=== PATIENT | female | born 1955 | race Caucasian/White ===

== ENCOUNTER 2024-08-30 19:28 | Emergency (ER) | payer OTHER, SELFPAY ==
[2024-08-30 19:49] VITALS: BP 174/85; PULSE 70; RESP 18; TEMP 36.6; O2SAT 95; BMI 34.0
--- NOTE | 2024-08-30 21:23 | ED.GENADULT ---
HPI - General Adult General Date Seen: 08/30/24 Chief complaint: Ear/Nose/Throat Problem Stated complaint: Left Ear Infection concerns Time Seen by Provider: 08/30/24 21:22 History of Present Illness HPI narrative: 69 yo female with a past medical history including Factor 5 Leiden, history of blood clots, paroxysmal AFib, hypertension, and history of frequent he sinus infections who presents to the ER today for sharp intermittent left ear pain. She does have a bit of a chronic cough and sinus problems it has been worse over the past several days. Since today she has also developed left ear pain. It has been quite sharp in nature and comes and goes. No clear trigger for it. No right ear pain. No sore throat. No fever. No headache. She is not diabetic or immunosuppressed. She recalls that she previously had a hole in 1 of her eardrums, but she cannot recall which 1. [facility] Medical History (Updated 08/30/24 @ 21:41 by Hubert Valle MD) Osteopenia ?M85.80 - Other specified disorders of bone density and structure, unspecified site (ICD-10) Essential hypertension ?I10 - Essential (primary) hypertension (ICD-10) Deep venous thrombosis ?I82.409 - Acute embolism and thrombosis of unspecified deep veins of unspecified lower extremity (ICD-10) 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 - Other dorsalgia (ICD-10) Osteoarthritis ?M19.90 - Unspecified osteoarthritis, unspecified site (ICD-10) Prediabetes ?R73.03 - Prediabetes (ICD-10) Factor V Leiden mutation ?D68.51 - Activated protein C resistance (ICD-10) Surgical History (Updated 08/30/24 @ 20:32 by Marquis Perkins RN) History of abdominal hysterectomy ?Z90.710 - Acquired absence of both cervix and uterus (ICD-10) History of tonsillectomy ?Z90.89 - Acquired absence of other organs (ICD-10) History of carpal tunnel release ?Z98.890 - Other specified postprocedural states (ICD-10) Social History Smoking Status: Never smoker Second hand tobacco smoke exposure: No How often do you have a drink containing alcohol: never AUDIT-C Alcohol total score: 0 Non-prescribed substance use: denies use Exam Narrative: Exam Narrative: Constitutional: Appears well-developed and well-nourished. Alert. Conversant. Non toxic. HENT: Head: Atraumatic. Nose: Nose normal. Mouth/Throat: Oral mucosa is clear and moist. no trismus. Pharynx normal. Tonsils surgically absent. No tonsillar enlargement, erythema, or exudate. Right ear: Mastoid, pinna, canal, TM are normal. Left ear: Mastoid, pinna, canal normal save for a small amount of cerumen. Visualized TM is erythematous with some opaque fluid behind it. Eyes: Conjunctivae normal. EOM normal. Pupils equal, round, and reactive to light. No scleral icterus. Neck: Normal range of motion. Neck supple. No tracheal deviation present. Cardiovascular: Normal rate, regular rhythm. No gallop. No friction rub. No murmur heard. Pulmonary/Chest: Effort normal. No stridor. No respiratory distress. No wheezes. No rales. No rhonchi . No tenderness. Musculoskeletal: RUE: Normal range of motion. No tenderness. No deformity LUE: Normal range of motion. No tenderness. No deformity RLE: Normal range of motion. No edema. No tenderness. No deformity LLE: Normal range of motion. No edema. No tenderness. No deformity Lymph: No cervical adenopathy. Neurological: Alert and oriented to person, place, and time. Normal strength. CN II-VII intact. No sensory deficit. GCS eye subscore is 4. GCS verbal subscore is 5. GCS motor subscore is 6. Normal coordination Skin: Skin is warm and dry. No rash noted. No pallor. Normal capillary refill. Psychiatric: Normal mood. Normal affect. Const: Vital Signs, click to edit/add: Vital Signs - 24 hr 08/30/24 19:49 08/30/24 21:53 08/30/24 21:54 Temperature 97.9 F 97.9 F 97.9 F Pulse Rate [Right Radial] 70 68 68 Respiratory Rate 18 18 18 Blood Pressure [Ri ght Upper Arm] 174/85 H 155/85 H 155/85 H Pulse Oximetry 95 95 Oxygen Delivery Me thod Room Air Room Air Course Vital Signs Vital signs: Initial Vital Signs Temperature 97.9 F 08/30/24 19:49 Temperature Source Oral 08/30/24 19:49 Pulse Rate 70 08/30/24 19:49 Pulse Rhythm Regular 08/30/24 19:49 Pulse Strength 3+ Normal 08/30/24 19:49 Respiratory Rate 18 08/30/24 19:49 Blood Pressure 174/85 H 08/30/24 19:49 Blood Pressure Mean 114 H 08/30/24 19:49 Blood Pressure Position Supine 08/30/24 19:49 Pulse Oximetry 95 08/30/24 19:49 Oxygen Delivery Method Room Air 08/30/24 19:49 Vital Signs Temperature 97.9 F 08/30/24 19:49 Pulse Rate 70 08/30/24 19:49 Respiratory Rate 18 08/30/24 19:49 Blood Pressure 174/85 H 08/30/24 19:49 Pulse Oximetry 95 08/30/24 19:49 Oxygen Delivery Method Room Air 08/30/24 19:49 Temperature 97.9 F 08/30/24 21:54 Pulse Rate 68 08/30/24 21:54 Respiratory Rate 18 08/30/24 21:54 Blood Pressure 155/85 H 08/30/24 21:54 Pulse Oximetry 95 08/30/24 21:53 Oxygen Delivery Method Room Air 08/30/24 21:53 Medical Decision Making MDM Narrative Medical decision making narrative: This patient presents for evaluation of left ear pain that began today, in the setting of some recent cough and nasal congestion.. The patient has an exam consistent with acute otitis media on the left. There is no sign of mastoiditis, meningitis, perforation, mass, dental abscess, or peritonsillar abscess. There is no evidence of otitis externa. No foreign body. The patient will be started on antibiotics and may take Tylenol or Ibuprofen for pain. Return if increasing pain, fever, decrease in hearing, swelling or pain of the mastoid, ear discharge, or severe headache. Follow-up with primary physician in 7-10 days, if symptoms persist. Instymeds prescriptions for amoxicillin 500 t.i.d. for 10 days, Adrian p.r.n.-10 tablets, Zofran p.r.n.-10 tablets. Opiate precautions reviewed. Discharge Plan Discharge Clinical Impression: Otitis media Patient Disposition: Home, Self-Care Condition: Stable Instructions: Ear Infection (ED) Additional Instructions: As we discussed, please be careful with the prescription pain killer because it can cause dizziness and drowsiness, nausea, and can be addictive. To treat your pain you can use regular [id number] medications 1st in use the opiate pain killer only if needed. Use the Zofran if needed help treat nausea. Use the antibiotic as prescribed help treat the ear infection. If you have any worsening symptoms such as high fever, severe pain, diffuse headache, vomiting, bleeding her fluid draining from her ear her, please come back to the ER right away. Please recheck with your regular doctor in 5-7 days. Stand Alone Forms: SmartHub Instructions
--- OUTSIDE RECORDS SUMMARY | 2024-08-30 21:51 | XMS_ITS | Data Portability ---
Author Organization [place] [facility], autoContract Address [address] [address] [place] [address] Care Team Providers Care Digital Media Producer Name Role Phone CYNTHIA BILL Primary Care Provider [phone] ANNA NO Microarray Analyst Assessment No assessment recorded. Plan of Treatment Reminders Order Date Submit Date Provider Last Modified By Organization Details Last Modified Time Details Appointments None recorded. Lab None recorded. Referral None recorded. Procedures home sleep testing (PROC) [id number] BLANK Not available 17:55:05 Surgeries None recorded. Imaging None recorded. Medication Orders None recorded. Patient TargetsNo targets recorded. Patient Instructions Encounter Date Encounter Id Patient Instructions Last Modified By Organization Details Last Modified Time 03/06/2024 [id number] The current plan was discussed with the patient, who understands and agrees with the plan. Questions were answered to the patient's satisfaction. Medication side effects/dosing discussed. Return to/contact the clinic if condition worsens or new symptoms arise. Advised to contact office within 2 weeks if patient is not contacted regarding ordered procedures/testin g/equipment. [email or web address] Not available 03/06/2024 18:55:26 Reason for Referral None Reported. Results Created Date Observation Date Name Description Value Unit Range Abnormal Flag Note LastModifiedBy Organization Detail LastModifiedTime 03/05/1912/16/2023 US, echoc ardio gram No observ ation record ed. [email or web address] Not Available 2024 18:52:30 03/05/19 25 12/14/2023 XR, chest , 2 view No observ ation record ed. [email or web address] Not Available 2024 18:52:31 03/05/19 25 12/15/2023 XR, chest , 1 view No observ ation record ed. [email or web address] Not Available 2024 18:52:31 04/05/19 25 03/17/2024 home sleep testi zuhair (PROC ) No observ ation record ed. [email or web address] Not Available 03/21 16:43:28 04/07/19 home sleep testi ng (PROC ) No observ ation record ed. [email or web address] Not Available 2024 15:09:50 Result Notes None recorded. Problems Name Problem SNOMED Code Status Onset Date Resolution Date Notes Provider Name and Address Organization Details Recorded Time Hypertensiv e disorder 61090226 Active 2024 ALYSA LAU NP [address] [facility],[address], [address], [place] [facility] 19:33:18 Gout 49403096 Active 2024 ALYSA LAU NP [address] [place] [address],[address], [address], [place] [facility] 19:33:24 Factor V Leiden mutation 000119196 Active 2024 ALYSA LAU NP [address] [facility],[address] [address], [place], [address], [place] [facility] 19:33:37 Deep venous thrombosis 885296446 Active 2024 ALYSA LAU NP [address] [facility],[address], [address], [place] [facility] 19:33:45 Paroxysmal atrial fibrillatio n 709019154 Active 2024 ALYSA LAU NP [address] [facility],[address], [address], [place] [facility] 19:33:59 Gastroesoph ageal reflux disease without esophagitis 864032601 Active 2024 ALYSA LAU NP [address], [place], [address], [place] [facility] 19:34:17 Pneumonia caused by SARS-CoV-2 1079726087562 63499 Active 2024 ALYSA PAVONCARAY, [employer]ER [address], [place], [address], [place] [facility] 15:14:33 Osteoarthri tis 088571921 Active 2024 ALYSA PAVONAPHKamila, [employer]ER [address], [place], [address], [place] [facility] 15:14:55 Obstructive sleep apnea syndrome 70882127 Active 2024 ahi = 16 ALYSA PAVONSARA, [employer] BO[employer]ER [address],[address] [address], [place], [address], [place] [facility] 09:18:27 Problem Notes None recorded. Procedures Surgical History Date Name Laterality Status Provider Name and Address Organization Details Recorded Time Tonsillectomy completed Zahra Corbett [place] [facility] 03/06/2024 17:16:48 Hysterectomy completed Zahra Corbett [place] [facility] 03/06/2024 17:16:55 Imaging Results None recorded. Procedure Notes None recorded. Medical Equipment None Reported. Allergies Allergen ID Allergen Name Allergen Category Reaction Reaction Severity Criticality Documentation Date Start Date Code Code System Note Provider Name and Address Organization Details Recorded Time 021613 codeine medicatio n nausea vomiting Not available Not available Not available 03/04/2024 2670 RxNorm ALYSA LIBRADOAPHY, [employer]ER [address], [place], [address], [facility] - [facility] 19:35:18 265410 latex environme nt,medica tion Not available Not available Not available 03/06/2024 85666 91 RxNorm ALYSA HEAPHY, [employer] BO[employer]ER [address], [place], [address], [facility] - [facility] 5 15:12:18 380800 Paxlovid medicatio n Not available Not available Not available 03/06/2024 61608 5 UNK ALYSA LAU, [employer] BO[employer]ER [address] [facility] [address], [place], [address], [facility] - [facility] 5 15:15:28 Medications Name Sig Start Date Stop Date Status Note LastModified by Organization Details LastModified Time doxycycline hyclate 100 mg capsule Take 1 capsule twice a day by oral route. active Not Available Not Available No t Available diltiazem ER 240 mg capsule,24 hr,extended release Take 1 capsule every day by oral route. active Not Available Not Available No t Available allopurinol 100 mg tablet Take 1 tablet every day by oral route. active Not Available Not Available No t Available omeprazole 10 mg capsule,delay ed release Take 2 capsules every day by oral route. active Not Available Not Available No t Available losartan 100 mg tablet Take 1 tablet every day by oral route. active Not Available Not Available No t Available colchicine active Not Available Not Av ailable Not Available nebivolol 5 mg tablet Take 1 tablet every day by oral route. active Not Available Not Available No t Available apixaban 5 mg tablet Take 1 tablet twice a day by oral route. active Not Available Not Available No t Available Vitals Date Recorded Body height Body mass index (BMI) Body weight Oxygen saturation Oxygen saturation in Arterial blood by Pulse oximetry Respiratory rate Heart rate Body temperature Systolic And Diastolic Provider Name and Address Organization Details Last Updated DateTime 5 162.56 cm 32.3 kg/m2 37679.8 g 93 % 93 % 16 /min 73 /min 97.6 [degF] 120/74 mm[Hg] Heath Raymond [place] [facility] 5 14:44:38 Social History Question Answer Notes LastModified by Organizat ion Details LastModified Time Tobacco Smoking Status Never Smoker Zahra valencia, [place] [facility] 03/06/2024 17:18:33 What Is Your Level Of Caffeine Consumption? Moderate [email or web address] Information not available 03/06/2024 In The 14 Days Before Symptom Onset, Have You Had Close Contact With A Laboratory-confir med COVID-19 While That Case Was Ill? No [email or web address] Information not available 03/06/2024 In The 14 Days Before Symptom Onset, Have You Had Close Contact With A Person Who Is Under Investigation For COVID-19 While That Person Was Ill? No [email or web address] Information not available 03/06/2024 Have You Been To An Area Known To Be High Risk For COVID-19? No [email or web address] Information not available 03/06/2024 What Was The Date Of Your Most Recent Tobacco Screening? 03/06/2024 [email or web address] Information not available 03/06/2024 How Many Children Do You Have? 2 Daughter' s [email or web address] Information not available 03/06/2024 Do You Have Any Pets? No [email or web address] Information not available 03/06/2024 What Is Your Relationship Status? [email or web address] Information not available 03/06/2024 Are You Passively Exposed To Smoke? No [email or web address] Information no t available 03/06/2024 Has Tobacco Cessation Counseling Been Provided? No [email or web address] Information not available 03/06/2024 Sex: Unknown Functional Status Question Answer Note LastModified by Organizat ion Details LastModified Time Do you use any illicit or recreational drugs? No [email or web address] Information not available 03/06/2024 Do you or have you ever used any other forms of tobacco or nicotine? No [email or web address] Information not available 03/06/2024 What is your level of alcohol consumption? None [email or web address] Information not available 03/06/2024 Are you currently employed? No [email or web address] Information not available 03/06/2024 What is your exercise level? Occasional [email or web address] Information not available 03/06/2024 Mental Status None recorded. Family History Relationship Description Onset Age of this Age Resolved Age Notes LastModified by Organization Details LastModified Time Mother Chronic obstructive pulmonary disease [email or web address] Not available 17:17:07 Mother Carcinoma in situ of lung [email or web address] Not available 03/06/2024 17:17:34 Mother Rheumatoid arthritis [email or web address] Not available 17:17:58 Mother Dementia [email or web address] Not avail able 03/06/2024 17:18:08 Mother Alzheimer's disease Not available 17:18:15 Father Sleep apnea [email or web address] Not av ailable 03/06/2024 17:17:19 Father Essential hypertension [email or web address] Not available 03/06/2024 17:17:49 Medical History Condition Response Coronary Artery Disease N Atrial Fibrillation Y High Blood Pressure (Hypertension) Y Kidney Stones N Emphysema N COPD N Depression Y Pneumonia Y Lung Nodule N Valley Fever (Coccidioidomycosis) N Congestive Heart Failure N Sinusitis N Blood Clot Y Acid Reflux (GERD) Y Cancer N Restless Leg Syndrome (RLS) N Stroke N Murmur/Heart Valve Disease N Rheumatoid Arthritis N Fibromyalgia Y Kidney Disease N Anxiety Y Pulmonary Fibrosis N Tuberculosis N AIDS/HIV N Asthma N Hepatitis N Pulmonary Embolism N Thyroid Disease N Asbestosis N Sarcoidosis N Cystic Fibrosis N Chest Pain/Angina N High Cholesterol Y Allergies/Hayfever Y Osteoarthritis Y Anemia N Multiple Sclerosis N Heart Attack (NM) N Diabetes N Insomnia N Dementia N Immunoglobulin Deficiency N Lupus N Bipolar Disorder N Sleep Apnea N Heart Disease N Bronchitis Y Osteoporosis N Gynecological HistoryNo gynecological history recorded. Obstetrics History GPAL:G 0 P 0 0 0 0 Past Encounters Encounter ID Performer Location Encounter Start Date Encounter Closed Date Diagnosis/Indication Diagnosis SNOMED-CT Code Diagnosis ICD10 Code Diagnosis Note [id number] ALYSA HEAPHKamila, [employer] BO[employer]ER [facility] [address] [facility] ,[address] [address] 03/06/2024 14:13:03 03/06/2024 17:45:36 Hypersomnia 31505997 G47.10 Polysomnog jayden is being ordered due to the presence of snoring, witnessed apneas during sleep, and/or daytime hypersomno lence. An overnight polysomnog hui is indicated to evaluate for sleep disordered breathing. Discussed options for DANIELA treatment including positive airway pressure ventilatio n, dental device, weight loss & Inspire. Discussed the risks of not treating sleep apnea in regards to the associatio n or developmen t of other diseases including hypertensi on, CAD, atrial fibrillati on, diabetes, stroke, and others. I will call pt with results and make follow up accordingl y Health Concerns Section Related Observation LastModified by Organization Detai ls LastModified Time None Recorded Concern Status LastModified by Organization Details LastModified Time None Recorded Advance Directives Directive None Recorded Payers Insurance Date Sequence Insurance Name Policy Number Policy Wallace Covered Member ID Wallace Member ID Guarantor Name 03/05/2024 1 [employer] (MEDICARE REPLACEMENT/A DVANTAGE - HMO) Casandra Hines [id number] Casandra Hines 03/05/2024 1 [employer] (MEDICARE REPLACEMENT/A DVANTAGE - PPO) [id number] Casandra Hines [id number] Casandra Hines Notes Date Note Type Note Provider Name and Address Organization Details Recorded Time 03/06/2024 text/html New patient is here today for sleep evaluation. She had new onset afib which converted w/ meds. Hx Factor V Leiden. Hx recurrent DVT. On eliquis. Snores. Falls asleep ok. Fragmented sleep. Unrefreshing sleep.Usually takes a daytime nap lasting a couple hrs. Still gets to sleep @ night. Dozes if inactive.Father w/ DANIELA. Bedtime: 0-11pWaketime: [address]a [place] in [place] & lives in [place] ALYSA LAU, FIRER BOILER [address],[address] [address], [place], [address], [facility] - [facility] 03/06/2024 18:55:49 OBGyn Episode No OBEpisode recorded.
--- OUTSIDE RECORDS SUMMARY | 2024-08-30 21:51 | XMS_ITS | Continuity of Care Document ---
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 Plan of Treatment Reminders Order Date Submit Date Provider Last Modified By Organization Details Last Modified Time Details Appointments ESTABLISH ED 15 2024 09:45A M Radha Le MD Not available Not available Not available Lab urinalysi s, dipstick 2024 025 [facility], [address], [address], [place], [address], 07/24/2024 11:11:24 Referral patient navigator referral [address] [facility], [address], [address], [place], [address], 08/03/2024 14:39:11 Procedures None recorded. Surgeries None recorded. Imaging None recorded. Medication Orders Vesicare 5 mg tablet 2024 025 [id number], [address] [place], [id number], 08/14/2024 15:31:20 Patient TargetsNo targets recorded. Patient Instructions Encounter Date Encounter Id Patient Instructions Last Modified By Organization Details Last Modified Time 07/24/2024 [id number] OAB/UUI/VIVI -st art vesicare 5mg and see in 6 week --risks and benefits discussed -start kegels 10/10 reps 2-3 times per day -We have reviewed the overactive bladder care pathway and an annotated handout was provided and reviewed with the patient today. -We have discussed that the first line of therapy is to decrease bladder irritants and to decrease fluids prior to bedtime. limiting amounts of coffee, soda, citrus can help along with dietary changes. -We discussed options for Physical Therapy and biofeedback as well as use of medications. There are many medications that are approved for OAB a handout was given that delineates this and reviews all medications (anticholingerics-- risk for dry mouth/constipation most commonly, or a newer medications, Myrbetriq or Gemtesa). I have suggested looking into insurance coverage for medication, as some medications are not initially covered well under some plans. -We did review 3rd line options for their bladder (Posterior Tibial Nerve stimulation (PTNM), Sacral Neuromodulation (Interstim/Axonics) , BOTOX) and others. We discussed that at times an evaluation with urodynamics, a test to study the bladders function, may be required if the above fails as well as cystocopy. [email or web address] Not available 07/24/2024 11:04:08 Reason for Referral Referring Physician: Radha espitia, Urology, Encounter Date: 07/24/2024 Problems Name Problem SNOMED Code Status Onset Date Resolution Date Notes Provider Name and Address Organization Details Recorded Time Urge incontinence of urine 39690167 Active 2024 Jackeline valencia [facility] 5 15:41:09 Essential hypertension 69631596 Active 2024 Jackeline valencia [facility] 5 15:50:52 Atrial fibrillation 31678375 Active 2024 Jackeline valencia [facility] 5 15:51:11 History of deep vein thrombosis 648931949 Active 2024 RICHIE Regan [facility] 5 15:51:20 Sleep apnea 73746977 Active 2024 Jackeline valencia [facility] 15:51:35 Lipoma 29763952 Active 2024 Jackeline Reilly [facility] 15:51:48 Problem Notes None recorded. Procedures Surgical History Date Name Laterality Status Provider Name and Address Organization Details Recorded Time 07/25/19 25 Past Data Reviewed completed Radha Le MD [address] [facility],[address], [place], [address] [place] [address] 07/23/2024 15:51:51 07/25/19 25 In and Out Catheterization- female completed Radha Le MD [address] [facility] [address], [place], [address] 07/24/2024 11:03:09 02/18/19 24 Colonoscopy completed Jackeline Reilly [facility] 07/21/2024 15:49:04 Total [facility] 07/21/[facility] 15:48:48 Diagnostic colonoscopy completed Not Available Health Note 07/23/2024 10:31:12 Total hysterectomy completed Not Available Health Note 07/23/2024 10:31:12 Imaging Results None recorded. Procedure Notes None recorded. Medical Equipment None Reported. Allergies Allergen ID Allergen Name Allergen Category Reaction Reaction Severity Criticality Documentation Date Start Date Code Code System Note Provider Name and Address Organization Details Recorded Time 929213 POLLEN EXTRACTS environme nt,medica tion cough Not available Not available 07/21/2024 30531 6 [facility] 15:44[facility]36 144815 tree and shrub pollen environme nt,medica tion cough Not available Not available 07/21/2024 98335 JENNIE Reilly [facility] 15:44:50 196753 grass pollen environme nt,medica tion cough Not available Not available 07/21/2024 14124 JENNIE Reilly [facility] 15:45:01 293563 mold extract environme nt cough Not available Not available 07/23/2024 19926 8 RxNorm Not Available Health Note 10:31:11 268845 hydrochlo rothiazid e medicatio n Not available Not available Not available 07/24/20242023 5487 RxNorm unrec ogniz ed react ion (text : Gout, Exace rbati on, code: [id number]) (from [facility]) Lorene Acosta [facility] 5 10:45:28 716628 allopurin ol medicatio n Not available Not available Not available 07/24/2024 519 RxNorm Lorene Acosta [facility] 5 10:45:41 830216 solifenac in medicatio n dizziness Not available Not available 08/14/2024 58942 7 RxNorm Const ipati on Jackeline Reilly [facility] 5 15:30:55 Medications Name Sig Start Date Stop Date Status Note LastModified by Organization Details LastModified Time diltiazem CD 240 mg capsule,ext ended release 24 hr TAKE 1 CAPSULE BY MOUTH DAILY active Not Available Not Available No t Available prednisone 20 mg tablet TAKE 1 TABLET BY MOUTH TWICE DAILY 07/24 completed Not Available Not Available Not Available naproxen 250 mg tablet TAKE 1 TABLET BY MOUTH EVERY 12 HOURS NEEDED active Not Available Not Available No t Available allopurinol 100 mg tablet TAKE 1 TABLET BY MOUTH DAILY FOR 2 WEEKS. THEN INCREASE TO 2 TABLETS DAILY FOR 2 WEEKS. THEN INCREASE TO 3 TABLETS active Not Available Not Available No t Available losartan 100 mg-hydrochl orothiazide 25 mg tablet TAKE 1 TABLET BY MOUTH EVERY DAY active Not Available Not Available No t Available benzonatate 100 mg capsule TAKE 1 CAPSULE BY MOUTH THREE TIMES DAILY NEEDED FOR COUGH active Not Available Not Available No t Available omeprazole 20 mg capsule,del ayed release Take 1 capsule every day by oral route. active Not Available Not Available No t Available albuterol sulfate HFA 90 mcg/actuati on aerosol inhaler INHALE 2 PUFFS INTO THE LUNGS EVERY 4 TO 6 HOURS NEEDED active Not Available Not Available No t Available losartan 100 mg tablet Take 1 tablet every day by oral route. active Not Available Not Available No t Available amoxicillin 875 mg-potassiu m clavulanate 125 mg tablet TAKE 1 TABLET BY MOUTH TWICE DAILY WITH MEALS FOR 10 DAYS 07/23 completed Not Available Not Available Not Available solifenacin 5 mg tablet TAKE 1 TABLET BY MOUTH EVERY DAY 08/14 completed Not Available Not Available Not Available nebivolol 5 mg tablet Take 1 tablet every day by oral route. active Not Available Not Available No t Available cetirizine 10 mg capsule Take by oral route. active Not Available Not Available No t Available Eliquis 5 mg tablet Take 1 tablet twice a day by oral route. active Not Available Not Available No t Available Gemtesa 75 mg tablet TAKE 1 TABLET BY MOUTH EVERY DAY active Not Available Not Available No t Available Paxlovid 300 mg (150 mg x 2)-100 mg tablets in a dose pack TAKE 2 NIRMATREL VIR TABLETS AND 1 RITONAVIR TABLET TOGETHER BY MOUTH TWICE DAILY FOR 5 DAYS PER PACKAGE DIRECTION S active Not Available Not Available No t Available Vitals Date Recorded Body mass index (BMI) Body weight Body height Provider Name and Address Organization Details Last Updated DateTime 07/24/2024 33.3 kg/m2 41129.77951 52581 g 162.56 cm Not Available Health Note 07/24/2024 10:13:20 Social History Question Answer Notes LastModified by [employer] ion Details LastModified Time Tobacco Smoking Status Never Smoker Not Available Health Note 07/23/2024 10:31:12 Do You Have An Advance Directive? No [email or web address] Information not available 07/23/2024 What Is Your Level Of Caffeine Consumption? Moderate [email or web address] Information not available 07/23/2024 How Much Tobacco Do You Chew? None [email or web address] Information not available 07/23/2024 Number Of Pregnancies 3 [email or web address] Information not available 07/23/2024 Number Of Vaginal Deliveries 3 [email or web address] Information not available 07/23/2024 Number Of Caesarean Sections 0 [email or web address] Information not available 07/23/2024 Could You Be ? No [email or web address] Information not available 07/23/2024 Do You Have A Medical Power Of Analysis Intern? No [email or web address] Information not available 07/23/2024 What Was The Date Of Your Most Recent Tobacco Screening? 07/24/2024 [email or web address] Information not available 07/23/2024 What Is Your Relationship Status? [email or web address] Information not available 07/23/2024 Are You Sexually Active? Yes [email or web address] Information not available 07/23/2024 Has Tobacco Cessation Counseling Been Provided? Yes Information not available 07/24/2024 On What Date Was Tobacco Cessation Counseling Provided? 07/24/2024 Information not available 07/24/2024 How Many Days In The Past Year Have You Consumed 4 Or More Drinks? [address] [email or web address] Information no t available 07/23/2024 Sex: Unknown Functional Status Question Answer Note LastModified by Organizat ion Details LastModified Time Do you use any illicit or recreational drugs? No [email or web address] Information not available 07/23/2024 Do you or have you ever used any other forms of tobacco or nicotine? No [email or web address] Information not available 07/21/2024 What is your level of alcohol consumption? None Information not available 07/24/2024 Do you or have you ever used smokeless tobacco? Never used smokeless tobacco [email or web address] Information not available 07/23/2024 Do you or have you ever used e-cigarettes or vape? Never used electronic cigarettes [email or web address] Information not available 07/23/2024 Mental Status None recorded. Family History Relationship Description Onset Age of this Age Resolved Age Notes LastModified by Organization Details LastModified Time Mother Family history of cardiac disorder [email or web address] Not available 2024 10:31:10 Father Family history of cardiac disorder [email or web address] Not available 2024 10:31:10 Paternal Grandfather Family history of cardiac disorder [email or web address] Not available 2024 10:31:10 Paternal Grandmother Family history of cardiac disorder [email or web address] Not available 2024 10:31:10 Medical History Condition Response High Blood Pressure Y Kidney Stones N Depression N Lung Disease N GERD/Acid Reflux Y Sexually Transmitted Infection N Cancer N High Cholesterol Y Diabetes N Bleeding Disorder Y Heart Disease N Gynecological History Statement/Question Response If Post Menopausal, Age at Menopause 32 Leaking urine with intercourse N Hormone Therapy N Sexually Active? Y Pain with intercourse N Obstetrics History GPAL:G 0 P 0 0 0 0 Past Encounters Encounter ID Performer Location Encounter Start Date Encounter Closed Date Diagnosis/Indication Diagnosis SNOMED-CT Code Diagnosis ICD10 Code Diagnosis Note [id number] Radha Le MD [facility] [address] [place] [address] 07/24/2024 10:13:15 07/31/2024 14:59:42 Overactive urinary bladder 443065714 N32.81 new Atrophic vaginitis 22439 000 N95.2 new Mixed urin yovany incontinence 537032296 N39.46 new Health Concerns Section Related Observation LastModified by Organization Detai ls LastModified Time None Recorded Concern Status LastModified by Organization Details LastModified Time None Recorded Payers Encounter Date Sequence Insurance Name Policy Number Policy Wallace Covered Member ID Wallace Member ID Guarantor Name 07/24/2024 2 [place]: [employer] Casadnra Jammie Donny [id number] Casandra Hines 07/24/2024 1 [employer] (MEDICARE REPLACEMENT/AD VANTAGE - PPO) Casandra Hines [id number] Casandra Hines Notes Date Note Type Note Provider Name and Address Organization Details Recorded Time 07/24/2024 text/html 69 yo F her e for evaluation of bladder concerns.noted with sx of OAB/UUIsp hysterectomy for pelvic mass and endometriosis, benign, 39 yrs.has not been on any hornomes since then Chief complaint:Incontinenc e Incontinence:Began:20 Years ago -- got much worse 1 yr or suchIncontinent of:UrineAssociated symptoms:Frequent urination at nightFrequency:Sudden lyWorse with:Caffeine (coffee, soda etc.)Severity:severeI nterference with life:SubstantialProgr ession:getting worse overall Overactive Bladder Pathway Questionnaire:Uses the restroom:10times per day Uses the restroom (daytime): [id number] Uses the restroom (nighttime): 2-3 Accidents:0per day Pads: [id number] day--gets thereUUI>>SUIcaffeine : 2 cups, 8oz eachBMs: 1 daily or every other day, no leakagesexually active: yes no painno sx of bulge or pressure no utisno hematurianon-smoker Urogenital Distress Inventory (EVELINA-6):[3] Frequent urination:Greatly[3] Urine leakage related to the feeling of urgency:Greatly[3] Urine leakage related to physical activity, coughing or sneezing:Greatly[3] Small amounts of urine leakage (drops):Greatly[0] Difficulty emptying your bladder:Not at All[0] Pain or discomfort in the lower abdominal or genital area:Not at All Incontinence Impact Questionnaire (IIQ-7):[0] Ability to do apple checker (cooking, housecleaning):Not at All[3] Physical recreation such as walking, or other exercise:Greatly[0] Ability to attend entertainment activities (movie, concerts):Not at All[1] Ability to travel by car more than 30 minutes from home:Slightly[0] Participation in social activities outside your home:Not at All[1] Emotional health (nervousness, depression, etc):Slightly[3] [place] frustrated:Greatly Radha Le MD [address] [facility],[address] [place] [address], [phone], [facility] 07/24/2024 11:04:55 OBGyn Episode No OBEpisode recorded.
--- OUTSIDE RECORDS SUMMARY | 2024-08-30 21:51 | XMS_ITS | Clinical Summary ---
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 Do not crush or chew. Active omeprazole 20 mg tablet Take 20 mg by mouth once daily. Active colchicine 0.6 mg tabletIndication s:Acute drug-induced gout involving toe of left foot Day 1: take 2 tablets then take 1 tablet an hour later. Day 2 and after: take 1 tablet twice daily until pain resolves (typically resolves within 48 hours). Use for acute flares, start as soon as symptoms start. 12 Tablet 5 4 Active allopurinoL (ZYLOPRIM) 100 mg tabletIndication s:Acute drug-induced gout involving toe of left foot Take 3 Tablets (300 mg) by mouth once daily. TAKE 3 TABLETS BY MOUTH DAILY 270 Tablet 3 4 Active losartan (COZAAR) 100 mg tabletIndication s:HTN (hypertension) Take 1 Tablet (100 mg) by mouth once daily. 90 Tablet 3 4 Active fluticasone (50 mcg per actuation) nasal solution (FLONASE)Indicat ions:Chronic rhinitis Inhale 2 Sprays in both nostrils once daily. 4 Active amLODIPine (NORVASC) 10 mg tabletIndication s:HTN (hypertension) Take 1 Tablet (10 mg) by mouth once daily. 90 Tablet 4 Active Eliquis 5 mg tabletIndication s:Factor V Leiden mutation (HC),Deep vein thrombosis (DVT) of distal vein of lower extremity, unspecified chronicity, unspecified laterality (HC) TAKE 1 TABLET BY MOUTH TWICE DAILY 180 Tablet 1 5 Active Active Problems Problem Noted Date Diagnosed Date Factor V Leiden mutation 06/14/2023 Prediabetes 06/14/2023 Osteoarthritis 06/14/2023 Vertebrogenic pain syndrome 10/23/2022 Deep venous thrombosis 09/14/2022 Superficial thrombophlebitis 09/05/2022 Essential hypertension 11/03/2021 Osteopenia 11/03/2021 Encounters Date Type Department Care Team Description 07/13/2024 Refill [facility] [address] [place] [address] Geovanna Storm MD Refill Request (Eliquis) 06/28/2024 Refill [facility] [address] [place] [address] Geovanna Storm MD Refill Request (Colchicine) 06/28/2024 Refill [facility] [address] [place] [address] Juany Morales PA Refill Request (Amoxicillin-clavulanat e) from Last 3 Months Family History Medical History Relation Name Comments No Known Problems Brother 1 No Known Problems Brother 2 Atrial fibrillation Father Stroke Father Cancer-breast Maternal Grandmother Lung cancer Mother Pulmonary embolism Mother Raynaud syndrome Mother Rheum arthritis Mother Sjogren's syndrome Mother Vasculitis Mother Heart Disease Paternal Grandfather Heart Disease Paternal Grandmother No Known Problems Sister Cancer-ovarian No Family History Relation Name Status Comments Brother 1 Alive Brother 2 Alive Father Maternal Grandfather Maternal Grandmother Mother Paternal Grandfather Paternal Grandmother Sister Alive Social History Tobacco Use Types Packs/Day Years Used Date Smoking Tobacco: Never Smokeless Tobacco: Never Tobacco Cessation:Counseling Given: Yes Alcohol Use Standard Drinks/Week Comments Not Currently 0 (1 standard drink = 0.6 oz pur e alcohol) rarely PHQ-2 Answer Date Recorded PHQ-2 TOTAL SCORE 0 06/14/2023 Social Connections Answer Date Recorded Do you often feel lonely or isolated from those around you? 0 09/11/2023 Alcohol Use Answer Date Recorded How often do you have a drink containing alcohol ? 1 09/30/2023 How many drinks containing a lcohol do you have on a typical day when you are drinking? 0 09/30/2023 How often do you have five or more drinks on one occasion? 0 09/30/2023 Financial Resource Strain Answer Date R ecorded Difficulty of Paying Living Expenses 3 09/11/2023 Difficulty of Paying Living Expenses Not on file 09/11/2023 Food Insecurity Answer Date Recorded Do you worry your food will run out before you are able to buy more? 1 09/11/2023 Transportation Needs Answer Date Record ed Does lack of transportation keep you from medica l appointments? 1 09/11/2023 Does lack of transportation keep you from work, meetings or getting things that you need? 1 09/11/2023 Housing Stability Answer Date Recorded What is your housing situation today? 1 09/11/2023 Utilities Answer Date Recorded Do you have trouble paying f or utilities (for example, heat, electricity, water, phone)? 1 09/11/2023 Comments No Sex and Gender Information Value Date Recorded Sex Assigned at Not on file Legal Sex Female 3:05 PM CDT Gender Identity Not on file Sexual Orientation Not on file Obstetrics History Last Filed Vital Signs Vital Sign Reading Time Taken Comments Blood Pressure 158/92 10/28/2023 1:46 PM CDT Pulse 77 10/28/2023 1:46 PM CDT Temperature 36.5 C (97.7 F) 09/30/2023 1:00 PM CDT Respiratory Rate - - Oxygen Saturation 97% 10/28/2023 1:46 PM CDT Inhaled Oxygen Concentration - - Weight 90.4 kg (199 lb 4 oz) 10/07/2023 9:07 AM CDT Height 161 cm (5' 3.39) 06/14/2023 11:17 AM CDT Body Mass Index 34.87 06/14/2023 11:17 AM CDT Plan of Treatment Health Maintenance Due Date Last Done Comments Tetanus booster 02/29/1968 Hepatitis C screening for ag e 18-79 1975 Colonoscopy through age 75 2002 Pneumococcal series for age 50+ (1 of 1 - PCV) 2007 Zoster (shingles) series for age 50+ (1 of 2) 2007 DEXA/DXA scan for age 65+ 2022 COVID-19 vaccine series (1 - season) 2023 BMI (ht and wt on same day) for age 18+ 06/13/2024 06/14/2023 Depression screening for age 12+ 06/13/2024 06/14/19 24 Mammogram for age 45-75 06/13/2024 06/14/2023 Medicare Wellness for age 65+ 06/14/2024 06/14/2023 Influenza Vaccine (#1) 2024 Lipids for age 45-75 06/13/2028 06/14/2023 RSV vaccine for adults or (1 - 1-dose 75+ series) 02/29/2032 Hepatitis B series for 19+ Aged Out N o longer eligible based on patient's age to complete this topic Procedures Procedure Name Priority Date/Time Associated Diagnosis Comments XR MAMMO JAYDEN BILAT SCREEN Routine 06/14/2023 1:33 PM CDT Encounter for screening mammogram for malignant neoplasm of breast LIPID PANEL W REFLEX MEASURED LDL Routine 06/14/2023 12:07 PM CDT Screening cholesterol level from Last 3 Months or Most Recently Relevant to Health Maintenance Results * XR MAMMO JAYDEN BILAT SCREEN (06/14/2023 1:33 PM CDT) Anatomical Region Laterality Modality BREASTS, Breast Left, Breast Right Bilateral Mammography Impressions 06/25/2023 1:54 PM CDT There is no radiographic evidence for malignancy. Recommend annual mammograms. MAMMOGRAM ASSESSMENT: ACR 1 Negative PATIENTS: You will also receive a letter with your examination results in an easy to read format. If you have questions about your results, please contact your referring provider. Narrative 06/25/2023 1:54 PM CDT For Patients: As a result of the Cures Act, medical imaging exams and procedure reports are released immediately into your electronic medical record. You may view this report before your referring provider. If you have questions, please contact your health care provider. XR MAMMO JAYDEN BILAT SCREEN [[id number]] CLINICAL HISTORY: This is an asymptomatic 68 y.o. patient. INDICATION FOR EXAM: Mammogram Screening. TECHNIQUE: CC & MLO views were obtained. This study was evaluated with the assistance of Computer-Aided Detection. Breast Tomosynthesis was used in interpretation. COMPARISON FILM: Yes 08/24/21 Outside Facility FINDINGS: The breasts have scattered areas of fibroglandular density. There are no dominant masses, suspicious micro calcifications or areas of architectural distortion. us Geovanna Storm MD MAMMO Fi nal Result * (ABNORMAL) LIPID PANEL W REFLEX MEASURED LDL (06/14/2023 12:07 PM CDT) CHOLESTEROL,TOTAL 221(H) 100 - 199 mg/dL 06/14/2023 10:15 PM CDT [facility] Comment: Cholesterol, Total Reference Ranges Desirable <200 mg/dL Borderline 200-239 mg/dL High >=240 mg/dL TRIGLYCERIDES 116 <150 mg/dL 06/14/2023 10:15 PM CDT [facility] HDL CHOLESTEROL 59 >40 mg/dL 10:15 PM CDT [facility] NON-HDL CHOLESTEROL 162(H) <145 mg/dl 06/14/2023 10:15 PM CDT [facility] CHOL/HDL RATIO 3.75 <4.50 06/14/2023 10:15 PM CDT [facility] LDL CHOLESTEROL 139(H) <=130 mg/dL 06/14/2023 10:15 PM CDT [facility] VLDL CHOLESTEROL 23 <=30 mg/dL 06/14/2023 10:15 PM CDT [facility] PROVIDER ORDERED STATUS RANDOM 06/14/2023 10:15 PM CDT [facility] Blood BLOOD SPECIMEN / Unknown Butterfly / Unknown 06/14/2023 12:07 PM CDT 06/14/2023 12:13 PM CDT us Geovanna Storm MD CHEMISTRY Fi nal Result [facility] [address] [place] [address], from Last 3 Months or Most Recently Relevant to Health Maintenance Insurance [employer] CHOICE PPO MR
--- OUTSIDE RECORDS SUMMARY | 2024-08-30 21:51 | XMS_ITS | Data Portability ---
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 Plan of Treatment Reminders Order Date Submit Date Provider Last Modified By Organization Details Last Modified Time Details Appointments ESTABLISH ED 15 2024 09:45A M Radha Le MD Not available Not available Not available Lab urinalysi s, dipstick 2024 025 [facility], [address], [place], [address], 07/24/2024 11:11:24 Referral patient navigator referral 2024 025 [facility], [address], [address], [place], [address], 08/03/2024 14:39:11 Procedures None recorded. Surgeries None recorded. Imaging None recorded. Medication Orders Vesicare 5 mg tablet 2024 025 [id number], [address] [place], [place], [id number], 08/14/2024 15:31:20 Patient TargetsNo targets recorded. Patient Instructions Encounter Date Encounter Id Patient Instructions Last Modified By Organization Details Last Modified Time 07/24/2024 [id number] OAB/UUI/IGLESIA -sta rt vesicare 5mg and see in 6 week [...] Physician: Radha espitia, Urology, Encounter Date: 07/24/2024 Results Created Date Observation Date Name Description Value Unit Range Abnormal Flag Note LastModifiedBy Organization Detail LastModifiedTime 07/25/1907/24/2024 UA WITHO UT MICRO PLYMO UTH color-status YELLOW yellow Not Available [facility] [address] [facility] [address], [place], [address], 07/24/2024 11:11:24 07/25/19 25 07/24/2024 UA WITHO UT MICRO PLYMO UTH clarity-stat us CLEAR clear Not Available [facility] [address] [facility] [address], [place], [address], 07/24/2024 11:11:24 07/25/19 25 07/24/2024 UA WITHO UT MICRO PLYMO UTH glucose-stat us NEGATI VE mg/dL negati ve Not Available [facility] [address] [facility] [address], [place], [address], 07/24/2024 11:11:24 07/25/19 25 07/24/2024 UA WITHO UT MICRO PLYMO UTH bilirubin-ur ine NEGATI VE negati ve Not Available [facility] [address] [facility] [address], [place], [address], 07/24/2024 11:11:24 07/25/19 25 07/24/2024 UA WITHO UT MICRO PLYMO UTH ketones-stat us NEGATI VE mg/dL negati ve Not Available [facility] [address] [facility] [address], [place], [address], 07/24/2024 11:11:24 07/25/19 25 07/24/2024 UA WITHO UT MICRO PLYMO UTH SG-status <=1.00 5 1.00-1 .03 Not Available [facility] [address] [facility] [address], [place], [address], 07/24/2024 11:11:24 07/25/19 25 07/24/2024 UA WITHO UT MICRO PLYMO UTH pH-status 5.5 5.00-8 .00 Not Available [facility] [address] [place] [address] [address], [place], [address], 07/24/2024 11:11:24 07/25/19 25 07/24/2024 UA WITHO UT MICRO PLYMO UTH protein-stat us NEGATI VE mg/dL negati ve Not Available [facility] [address] [facility] [address], [place], [address], 07/24/2024 11:11:24 07/25/19 25 07/24/2024 UA WITHO UT MICRO PLYMO UTH urobilinogen -status 0.2 E.U./D L E.U./ dL 0.2 E.U./d L Not Available [facility] [address] [facility] [address], [place], [address], 07/24/2024 11:11:24 07/25/19 25 07/24/2024 UA WITHO UT MICRO PLYMO UTH nitrites-sta tus NEGATI VE negati ve Not Available [facility] [address] [place] [address] [address], [place], [address], 07/24/2024 11:11:24 07/25/19 25 07/24/2024 UA WITHO UT MICRO PLYMO UTH blood-urine NEGATI VE negati ve Not Available [facility] [address] [place] [address] [address], [place], [address], 07/24/2024 11:11:24 07/25/19 25 07/24/2024 UA WITHO UT MICRO PLYMO UTH leuko-status NEGATI VE negati ve Not Available [facility] [address] [place] [address] [address], [place], [address], 07/24/2024 11:11:24 07/25/19 25 07/24/2024 UA WITHO UT MICRO PLYMO UTH specimen type VOIDED Not Available [facility] [address] [facility] [address], [place], [address], 07/24/2024 11:11:24 07/25/19 25 07/24/2024 UA WITHO UT MICRO PLYMO UTH performed by STACEY Cervantes Not Available [facility] [address] [place] [address] [address], [place], [address], 07/24/2024 11:11:24 07/25/19 25 07/24/2024 UA WITHO UT MICRO PLYMO UTH total urine volume (mL) 15 /mL ----- ----- ----- ----- ----- ----- ----- ----- ----- ----- ----- ----- ----- ----- ---- *Chris tijerina note the follo wing minim um quant ities for addit ional urine testi ng: - Atypi cals: 3 mL - Cytol ogy: 20 mL - GC/CH : 2 mL - FISH: 30 mL - Atypi cals w/ GC/CH : 5 mL - Cytol ogy PLUS FISH: 50 mL - Urine Cultu re: 3 mL ----- ----- ----- ----- ----- ----- ----- ----- ----- ----- ----- ----- ----- ----- ---- This lab resul t is being provi ded to you and your provi nitza at the same time in compl iance with the Centu ry Cures Act. Your provi nitza may not have had time to revie w and make recom menda tions based on the resul t. Chidi gardner allow up to one week for provi nitza revie w. Not Available [facility] [address], [place], [address], 07/24/2024 11:11:24 Result Notes None recorded. Problems Name Problem SNOMED Code Status Onset Date Resolution Date Notes Provider Name and Address Organization Details Recorded Time Urge incontinence of urine 02136979 Active 2024 Jackeline valencia [facility] 15:41:09 Essential hypertension 10845522 Active 2024 Jackeline valencia [facility] 15:50:52 Atrial fibrillation 53658645 Active 2024 Jackeline valencia [facility] 15:51:11 History of deep vein thrombosis 622548257 Active 2024 RICHIE Regan [facility] 15:51:20 Sleep apnea 94285700 Active 2024 Jackeline valencia [facility] 15:51:35 Lipoma 22720776 Active 2024 Jackeline Reilly [facility] 15:51:48 Problem Notes None recorded. Procedures Surgical History Date Name Laterality Status Provider Name and Address Organization Details Recorded Time 07/25/19 25 Past Data Reviewed completed Radha Le MD [address] [facility], [place], [address], [facility] 07/23/2024 15:51:51 07/25/19 25 In and Out Catheterization- female completed Radha Le MD [address] [facility], [place], [address], [facility] 07/24/2024 11:03:09 02/18/19 24 Colonoscopy completed Jackeline Reilly [facility] 07/21/2024 15:49:04 Total Hysterectomy completed Jackeline Tobiasarias [facility] 07/21/2024 15:48:48 Diagnostic colonoscopy completed Not Available Health Note 07/23/2024 10:31:12 Total hysterectomy completed Not Available Health Note 07/23/2024 10:31:12 Imaging Results None recorded. Procedure Notes None recorded. Medical Equipment None Reported. Allergies Allergen ID Allergen Name Allergen Category Reaction Reaction Severity Criticality Documentation Date Start Date Code Code System Note Provider Name and Address Organization Details Recorded Time 127627 POLLEN EXTRACTS environme nt,medica tion cough Not available Not available 07/21/2024 81629 6 RxNorm Jackeline Reilly [facility] 15:44:36 127223 tree and shrub pollen environme nt,medica tion cough Not available Not available 07/21/2024 10070 Shayna Reilly [facility] 15:44:50 758233 grass pollen environme nt,medica tion cough Not available Not available 07/21/2024 31047 Shayna Reilly [facility] 15:45:01 398041 mold extract environme nt cough Not available Not available 07/23/2024 32074 8 RxNorm Not Available Health Note 10:31:11 248633 hydrochlo rothiazid e medicatio n Not available Not available Not available 07/24/20242023 5487 RxNorm unrec ogniz ed react ion (text : Gout, Exace rbati on, code: [id number]) (from exter nal sour e) Stacey Acotsa [facility] 5 10:45:28 192002 allopurin ol medicatio n Not available Not available Not available 07/24/2024 519 RxNorm Stacey Acosta [facility] 5 10:45:41 865421 solifenac in medicatio n dizziness Not available Not available 08/14/2024 41738 7 RxNorm Const ipati on Jackeline Reilly [facility] 5 15:30:55 Medications Name Sig [...] Details Last Updated DateTime 07/24/2024 33.3 kg/m2 07263.10370 44950 g 162.56 cm Not Available Health Note [...] Do You Have A Medical Power Of Pole Peeler? No [email or web address] Information not available 07/23/2024 What [...] You Consumed 4 Or More Drinks? 0 [facility]-685 Information no t available 07/23/2024 Sex: Unknown [...] Time Mother Family history of cardiac disorder [facility]-[id number] Not available 2024 10:31:10 Father Family history of cardiac disorder [facility]-[id number] Not available 2024 10:31:10 Paternal Grandfather Family history of cardiac disorder [email or web address] Not available 2024 10:31:10 Paternal Grandmother Family history of cardiac disorder [facility]-[id number] Not available 2024 10:31:10 Medical History Condition Response High Blood Pressure Y Kidney Stones N Lung Disease N Depression N GERD/Acid Reflux Y Sexually Transmitted Infection [...] SNOMED-CT Code Diagnosis ICD10 Code Diagnosis Note [id number] Radha Le MD [facility] [address] [place] [address] 07/24/2024 10:13:15 07/31/2024 14:59:42 Overactive urinary bladder 809322409 N32.81 new Atrophic vaginitis 66910 000 N95.2 new Mixed urin yovany incontinence 391924119 N39.46 new Health Concerns Section Related Observation LastModified by Organization Detai ls LastModified Time None Recorded Concern Status LastModified by Organization Details LastModified Time None Recorded Advance Directives Directive N: Payers Insurance Date Sequence Insurance Name Policy Number Policy Wallace Covered Member ID Wallace Member ID Guarantor Name 07/21/2024 2 [place] Casandra Ballard Donny [id number] Casandra Elio Donny 07/31/2024 1 [employer] (MEDICARE REPLACEMENT/AD VANTAGE - PPO) Casandra Ballard Donny [id number] Casandra Ballard Donny Notes Date Note Type Note Provider Name [...] restroom:10times per day Uses the restroom (daytime): [id number] Uses the restroom (nighttime): 2-3 Accidents:0per day Pads: [id number] day--gets thereUUI>>SUIcaffeine : 2 cups, 8oz eachBMs: [...] Incontinence Impact Questionnaire (IIQ-7):[0] Ability to do manager labor delivery (cooking, housecleaning):Not at All[3] Physical recreation such as walking, or other exercise:Greatly[0] Ability to attend entertainment activities (movie, concerts):Not at All[1] Ability to travel by car more than 30 minutes from home:Slightly[0] Participation in social activities outside your home:Not at All[1] Emotional health (nervousness, depression, etc):Slightly[3] Howard frustrated:Greatly Radha Le MD [address] [place] [address],[address], [address], [facility] 07/24/2024 11:04:55 OBGyn Episode No OBEpisode recorded.
[2024-08-30 21:53] VITALS: BP 155/85; PULSE 68; RESP 18; TEMP 36.6; O2SAT 95
[2024-08-30 21:54] VITALS: BP 155/85; PULSE 68; RESP 18; TEMP 36.6
== END 2024-08-30 21:54 | disposition home or self-care (01) ==
LOC: ED 21:49
PROVIDERS: Emergency Provider Emergency Medicine
DX: H66.92 Otitis media, unspecified, left ear (principal)
CPT/HCPCS: 99282; 99283

== ENCOUNTER 2024-10-04 03:42 | Emergency (ER) | payer OTHER, SELFPAY ==
--- OUTSIDE RECORDS SUMMARY | 2024-10-04 03:45 | XMS_ITS | Clinical Summary ---
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 You may view this report before your referring provider. If you have questions, please contact your health care provider. XR MAMMO JAYDEN BILAT SCREEN [[id number]] CLINICAL HISTORY: This is an asymptomatic 68 [...] - 199 mg/dL 06/14/2023 10:15 PM CDT [facility] Comment: Cholesterol, Total Reference Ranges Desirable <200 mg/dL Borderline 200-239 mg/dL High >=240 mg/dL TRIGLYCERIDES 116 <150 mg/dL 06/14/2023 10:15 PM CDT [facility] HDL CHOLESTEROL 59 >40 mg/dL 10:15 PM CDT [facility] NON-HDL CHOLESTEROL 162(H) <145 mg/dl 06/14/2023 10:15 PM CDT [facility] CHOL/HDL RATIO 3.75 <4.50 06/14/2023 10:15 PM CDT [facility] LDL CHOLESTEROL 139(H) <=130 mg/dL 06/14/2023 10:15 PM CDT [facility] VLDL CHOLESTEROL 23 <=30 mg/dL 06/14/2023 10:15 PM CDT [facility] PROVIDER ORDERED STATUS RANDOM 06/14/2023 10:15 PM CDT [facility] Blood BLOOD SPECIMEN / Unknown Butterfly / Unknown 06/14/2023 12:07 PM CDT 06/14/2023 12:13 PM CDT us Geovanna Storm MD CHEMISTRY Fi nal Result [facility] [address] [place] [address], [place] from Last 3 Months or Most Recently Relevant to Health Maintenance Insurance [employer] [address]
[2024-10-04 03:48] VITALS: BP 153/111; PULSE 103; RESP 16; TEMP 36.4; O2SAT 95; BMI 35.6
--- NOTE | 2024-10-04 04:39 | ED.GENADULT ---
HPI - General Adult General Chief complaint: Arrhythmia/Palpitations Stated complaint: A-Fib Time Seen by Provider: 10/04/24 03:57 Source: patient Mode of arrival: ambulatory Limitations: no limitations History of Present Illness HPI narrative: 69-year-old female presents to the emergency department for evaluation of fluttering heart. She has a known history of atrial fibrillation. She is anticoagulated on Eliquis and takes diltiazem for rate control, sees a tobacco stripper hand in [place] she spends most of her year. She is back for the summer here in [place]. She reports that she rolled over in bed and felt herself flip into AFib. Symptoms lasted for about an hour before she decided to come to the ED. No chest pain, no shortness of breath no neurological changes. She has not noticed any recent signs of illness or fever. She continues to take her medications without difficulty. Has never required cardioversion per her report. It sounds like she has been given medication in the past to bring her out of AFib that has been successful, has had 3 total episodes. 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 Family history of ablation spit she herself has never had 1. She does report that she has not been as compliant with her CPAP recently because of an oral ulcer. Past medical history notable for AFib and hypertension home meds are diltiazem losartan nebivolol and Eliquis. Nonsmoker. No known drug allergies. ROS is notable for the cardiac symptoms only, otherwise denies times 12 systems Related Data Home Medications ?Medication ?Instructions ?Recorded ?Confirmed apixaban 5 mg tablet (Eliquis) 5 mg PO BID 10/04/24 10/04/24 diltiazem HCl 240 mg 240 mg PO DAILY 10/04/24 10/04/24 capsule,extended release 24 hr losartan 100 mg tablet 100 mg PO DAILY 10/04/24 10/04/24 nebivolol 5 mg tablet mg PO 10/04/24 Allergies Allergy/AdvReac Type Severity Reaction Status Date / Time No Known Drug Allergies Allergy Verified 10/04/24 03:53 [facility] Medical History Osteopenia ?M85.80 - Other specified disorders of bone density and structure, unspecified site (ICD-10) Essential hypertension ?I10 - Essential (primary) hypertension (ICD-10) Deep venous thrombosis ?I82.409 - Acute embolism and thrombosis of unspecified deep veins of unspecified lower extremity (ICD-10) 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 - Other dorsalgia (ICD-10) Osteoarthritis ?M19.90 - Unspecified osteoarthritis, unspecified site (ICD-10) Prediabetes ?R73.03 - Prediabetes (ICD-10) Factor V Leiden mutation ?D68.51 - Activated protein C resistance (ICD-10) Surgical History History of abdominal hysterectomy ?Z90.710 - Acquired absence of both cervix and uterus (ICD-10) History of tonsillectomy ?Z90.89 - Acquired absence of other organs (ICD-10) History of carpal tunnel release ?Z98.890 - Other specified postprocedural states (ICD-10) Social History Smoking Status: Never smoker Second hand tobacco smoke exposure: No How often do you have a drink containing alcohol: never AUDIT-C Alcohol total score: 0 Non-prescribed substance use: denies use Exam Const: Vital Signs, click to edit/add: Vital Signs - 24 hr 10/04/24 03:48 Temperature 97.6 F Pulse Rate [Pulse Oximeter] 103 H Respiratory Rate 16 Blood Pressure [Ri ght Upper Arm] 153/111 H Pulse Oximetry 95 Oxygen Delivery Me thod Room Air Documenting provider has reviewed patient's vital signs: yes Common normals: no apparent distress and alert General appearance: cooperative and well kempt HENMT: Common normals: normocephalic, moist oral mucous membranes and oropharynx normal Head and scalp: normocephalic Mouth: oral and palatal mucosa normal Eye: Common normals: conjunctivae normal General eye: normal appearance of both eyes Conjunctiva: conjunctiva(e) normal Resp: Common normals: normal respiratory effort and no use of accessory muscles Effort & inspection: able to speak in complete sentences Cardio: Common normals: regular rate, regular rhythm, S1 normal heart sound, S2 normal heart sound and no murmurs Rate: regular rate Rhythm: regular rhythm Heart sounds: S1 normal and S2 normal Neuro: Sensorium/orientation: alert Speech: speech normal Psych: Appearance: well kempt Attitude: engaged Activity/motor behavior: appropriate eye contact Insight: insight good Judgement: judgment good Skin: Common normals: no rashes or lesions noted General skin exam: no rashes or lesions noted Course Course ED Course: 69-year-old female with history of AFib with return of AFib at home, heart rate 90s to 120s. Unfortunately the ED was quite dizzy in the wee hours of the morning and she did have about a 45 minute weight until my arrival in which time she did convert from AFib at 1:36 a.m. in triage sinus rhythm in the 70s. She is completely asymptomatic at the time of my interview. She is feeling well agrees that no further workup is needed and would like to go home. I reviewed her cardiology plan. I see that she is properly anticoagulated, is on an excellent balance of medications. We discussed potentially talking to her tobacco stripper hand about a ?pill in the pocket? management plan for future AFib episodes. She will otherwise continue her medications as prescribed and is instructed on coming back to the ED if she has persistent AFib symptoms lasting more than a few hours or if she has AFib symptoms especially if accompanied by chest pain, neurological changes, shortness of breath, dizziness or other changes. She verbalizes understanding and agreement Vital Signs Vital signs: Initial Vital Signs Temperature 97.6 F 10/04/24 03:48 Temperature Source Temporal Artery Scan 10/04/24 03:48 Pulse Rate 103 H 10/04/24 03:48 Respiratory Rate 16 10/04/24 03:48 Blood Pressure 153/111 H 10/04/24 03:48 Blood Pressure Mean 125 H 10/04/24 03:48 Blood Pressure Position Semi-Fowlers 10/04/24 03:48 Pulse Oximetry 95 10/04/24 03:48 Oxygen Delivery Method Room Air 10/04/24 03:48 Vital Signs Temperature 97.6 F 10/04/24 03:48 Pulse Rate 103 H 10/04/24 03:48 Respiratory Rate 16 10/04/24 03:48 Blood Pressure 153/111 H 10/04/24 03:48 Pulse Oximetry 95 10/04/24 03:48 Oxygen Delivery Method Room Air 10/04/24 03:48 Temperature 97.6 F 10/04/24 03:48 Pulse Rate 103 H 10/04/24 03:48 Respiratory Rate 16 10/04/24 03:48 Blood Pressure 153/111 H 10/04/24 03:48 Pulse Oximetry 95 10/04/24 03:48 Oxygen Delivery Method Room Air 10/04/24 03:48 Medical Decision Making ECG Data Prior ECG tracings: not available for review Interpretation: Atrial fibrillation, irregular rapid rate with a rate of 136. [place] normal. Normal appearing T-waves to me. Discharge Plan Discharge Clinical Impression: Atrial fibrillation Patient Disposition: Home, Self-Care Condition: Improved Instructions: A-fib (Atrial Fibrillation) (ED) Additional Instructions: As we discussed, your heart converted back to sinus rhythm on its own. You are no longer in atrial fibrillation. You did not require any treatment here in the emergency room. Continue taking her medications as prescribed. Consider talking to her tobacco stripper hand about the ?pill in the pocket? treatment plan were you would take an extra short-acting diltiazem tablet as needed for breakthrough AFib symptoms. This is a little different than your long-acting diltiazem that you are currently prescribed. It is okay since you are taking blood thinners to wait a few hours prior to coming to the ED if you notice AFib. Make sure that you continue to take her medications including her blood thinners and certainly come in if you has severe shortness of breath, chest pain, neurological changes or significant weakness. Activity Level: No Restrictions Discharge Diet: Regular Prescriptions: No Action diltiazem HCl 240 mg capsule,extended release 24hr 240 mg PO DAILY losartan 100 mg tablet 100 mg PO DAILY nebivolol 5 mg tablet PO Eliquis 5 mg tablet 5 mg PO BID Follow Up/Referrals: Provider,Not a Local [Primary Care Provider, Family Practice] Stand Alone Forms: Waterfall Info Instructions
[2024-10-04 04:40] VITALS: RESP 24; O2SAT 92
[2024-10-04 04:41] VITALS: RESP 26; O2SAT 92
== END 2024-10-04 04:53 | disposition home or self-care (01) ==
LOC: ED 04:41
PROVIDERS: Emergency Provider Family Medicine; PCP Family Medicine
DX: I48.91 Unspecified atrial fibrillation (principal)
CPT/HCPCS: 99282; 99284